=== PATIENT | female | born 1975 | race American Indian/Alaskan Native ===

== ENCOUNTER 2021-04-02 21:33 | Emergency (ER) | payer SELFPAY ==
--- NOTE | 2021-04-02 22:47 | Emergency Department Report ---
ED General Adult HPI - General Chief complaint: Upper Respiratory Infection Stated complaint: HIVES AND SHORTNESS OF BREATH Time Seen by Provider: 04/02/21 22:27 Source: patient Mode of arrival: Ambulatory Limitations: No Limitations - History of Present Illness Initial comments: 46 year old female who reports no significant past medical hx presents to ED presents to ED with complaints of hives and cough. Patient states she broke out in hives all over when she woke up this morning. She states the rash has resolved but she still continues to itch. She states the only the new thing she has been taking is flagyl which she took one dose of the day before. He states that she has not taken any Benadryl because she had to go to work. She states that she has taken Flagyl before without any issues. She denies any other known new contacts. Patient states that she has had a productive cough for about 2 weeks with associated chest congestion and intermittent wheezing and intermittent shortness of breath. She reports associated rhinorrhea. She reports no worsening shortness of breath since he developed the hives. She denies any facial swelling, tongue or throat swelling or extremity swelling. She denies any fever or chills. MD Complaint: Hives/Cough -: days(s) - Related Data Previous Rx's Medication Instructions Recorded Last Taken Type Albuterol Mdi (or & Nicu Only) 2 puff IH QID PRN #8.5 gram 04/02/21 Unknown Rx [ProAir HFA Inhaler] Cetirizine HCl [Zyrtec 10mg tab] 10 mg PO DAILY #30 tablet 04/02/21 Unknown Rx predniSONE [Deltasone] 40 mg PO QDAY #8 tab 04/02/21 Unknown Rx Allergies Allergy/AdvReac Type Severity Reaction Status Date / Time Penicillins Allergy Unknown Verified 04/02/21 22:10 ED Review of Systems ROS: Stated complaint: HIVES AND SHORTNESS OF BREATH Other details as noted in HPI Comment: All other systems reviewed and negative Constitutional: denies: chills, fever Eyes: denies: eye pain, eye discharge, vision change ENT: other (rhinorrhea). denies: ear pain, throat pain Respiratory: cough, shortness of breath, wheezing Cardiovascular: denies: chest pain, palpitations Gastrointestinal: denies: abdominal pain, nausea, vomiting, diarrhea, constipation, hematemesis Genitourinary: denies: urgency, dysuria, frequency, hematuria, discharge, abnormal menses, dyspareunia Musculoskeletal: denies: back pain, joint swelling, arthralgia Skin: rash, pruritus. denies: lesions, change in color, change in hair/nails Neurological: denies: headache, weakness, numbness, paresthesias, confusion, abnormal gait, vertigo Psychiatric: denies: anxiety, depression, auditory hallucinations, visual hallucinations, homicidal thoughts, suicidal thoughts Hematological/Lymphatic: denies: easy bleeding, easy bruising ED Past Medical Hx - Past Medical History Previous Medical History?: No - Surgical History Past Surgical History?: No - Medications Home Medications: Home Medications Medication Instructions Recorded Confirmed Last Taken Type Albuterol Mdi (or & Nicu Only) 2 puff IH QID PRN #8.5 gram 04/02/21 Unknown Rx [ProAir HFA Inhaler] Cetirizine HCl [Zyrtec 10mg tab] 10 mg PO DAILY #30 tablet 04/02/21 Unknown Rx predniSONE [Deltasone] 40 mg PO QDAY #8 tab 04/02/21 Unknown Rx ED Physical Exam - General Limitations: No Limitations General appearance: alert, in no apparent distress - Head Head exam: Present: atraumatic, normocephalic, normal inspection - Eye Eye exam: Present: normal appearance, PERRL, EOMI Pupils: Present: normal accommodation - ENT ENT exam: Present: normal exam, mucous membranes moist, TM's normal bilaterally - Neck Neck exam: Present: normal inspection, full ROM - Respiratory Respiratory exam: Present: normal lung sounds bilaterally, rhonchi (mild coarse rhonchi noted ). Absent: respiratory distress, wheezes, rales - Cardiovascular Cardiovascular Exam: Present: regular rate, normal rhythm, normal heart sounds - GI/Abdominal GI/Abdominal exam: Present: soft. Absent: distended, tenderness, guarding, rebound - Neurological Exam Neurological exam: Present: alert, oriented X3, CN II-XII intact, normal gait - Psychiatric Psychiatric exam: Present: normal affect, normal mood - Skin Skin exam: Present: intact. Absent: rash ED Course Vital Signs 04/02/21 22:06 Temperature 98.7 F Pulse Rate 62 Respiratory 18 Rate Blood Pressure 113/64 O2 Sat by Pulse 97 Oximetry ED Medical Decision Making - Radiology Data Radiology results: report reviewed - Medical Decision Making Chest x-ray shows nothing acute. Patient currently does not have any hives, but she did bring pictures of herself which did show few areas of hives on her body. She has no associated angioedema, tongue or throat swelling, her airway is intact and she is not in any respiratory distress. Her Vital signs are stable Her hives could be allergic reaction to the Flagyl which started taking for BV the day before. Recommend that she stop the Flagyl. She could use boric acid from [id number] to help her BV. Patient has also had a cough with associated intermittent wheezing, intermittent shortness of breath and chest tightness which all started 2 weeks prior to the onset of her allergic reaction. Patient does smoke. Chest x-ray does not show pneumonia. Suspect acute bronchitis at this time. Patient will be treated for both of her allergic reaction and her bronchitis. No indication for any additional testing, admission at this time. Discussed suspected diagnosis and treatment plan with patient Patient stable at time of discharge. Critical care attestation.: If time is entered above; I have spent that time in minutes in the direct care of this critically ill patient, excluding procedure time. ED Disposition Clinical Impression: Hives, Bronchitis, Allergic reaction caused by a drug Disposition: 01 HOME / SELF CARE / HOMELESS Is pt being admited?: No Does the pt Need Aspirin: No Condition: Stable Instructions: Allergies, Adult, [id number], Hives, [id number], Acute Bronchitis, Adult, Chronic Bronchitis (ED) Additional Instructions: I recommend not taking the flagyl any more and you will likely need to list it as an allergy. You can take boric acid from over the counter to help with your BV. Take the prednisone, the zyrtec and the use the albuterol MDI as prescribed to help with allergic reaction/hives and bronchitis. You can take over the counter mucinex or robitussin to help with cough. Return to ED if worse. Prescriptions: predniSONE [Deltasone] 40 mg PO QDAY #8 tab Albuterol Mdi (or & Nicu Only) [ProAir HFA Inhaler] 2 puff IH QID PRN #8.5 gram PRN Reason: Shortness Of Breath Cetirizine HCl [Zyrtec 10mg tab] 10 mg PO DAILY #30 tablet Referrals: CHRISSY DARBY MD [Staff Physician] - 3-5 Days Forms: Work/School Release Form(ED) Time of Disposition: 23:10
[2021-04-02] MEDS ORDERED: CETIRIZINE 10 MG TAB PO ONE (22:49)
[2021-04-02] MEDS ORDERED: predniSONE 20 MG TAB PO ONE (22:49)
--- NOTE | 2021-04-02 23:05 | XRay Report ---
CHEST 2 VIEWS INDICATION / CLINICAL INFORMATION: Cough/chest congestion. COMPARISON: None available. FINDINGS: SUPPORT DEVICES: None. HEART / MEDIASTINUM: No significant abnormality. LUNGS / PLEURA: No significant pulmonary or pleural abnormality. No pneumothorax. ADDITIONAL FINDINGS: No significant additional findings. IMPRESSION: 1. No acute findings. Signer Name: Chuck Rios MD Signed: 04/02/2021 11:01 PM Workstation Name: [id number]
[2021-04-03 01:18] VITALS: BP 107/71
== END 2021-04-03 00:19 | disposition home or self-care (01) ==
LOC: ED 21:33
DX: L50.9 Urticaria, unspecified (principal); J40 Bronchitis, not specified as acute or chronic; T78.49XA Other allergy, initial encounter; T50.905A Adverse effect of unspecified drugs, medicaments and biological substances, initial encounter; Y92.89 Other specified places as the place of occurrence of the external cause; X58.XXXA Exposure to other specified factors, initial encounter; R09.89 Other specified symptoms and signs involving the circulatory and respiratory systems; R06.2 Wheezing; R06.02 Shortness of breath; J34.89 Other specified disorders of nose and nasal sinuses; Z88.0 Allergy status to penicillin
CPT/HCPCS: 71046; 99283; J7512